=== PATIENT | male | born 1940 | race Caucasian/White ===

== ENCOUNTER 2016-05-27 06:33 | Outpatient (CLI) | payer MEDICARE | END 2016-05-27 06:34 | disposition home or self-care (01) | DX: N28.9 Disorder of kidney and ureter, unspecified (principal); I25.9 Chronic ischemic heart disease, unspecified; E78.5 Hyperlipidemia, unspecified; E11.649 Type 2 diabetes mellitus with hypoglycemia without coma; E03.9 Hypothyroidism, unspecified ==

== ENCOUNTER 2016-07-20 11:05 | Outpatient (CLI) | payer MEDICARE | END 2016-07-20 11:06 | disposition home or self-care (01) | DX: N05.9 Unspecified nephritic syndrome with unspecified morphologic changes (principal); D70.9 Neutropenia, unspecified; R80.9 Proteinuria, unspecified; E83.30 Disorder of phosphorus metabolism, unspecified; N25.81 Secondary hyperparathyroidism of renal origin ==

== ENCOUNTER 2016-08-23 08:00 | Outpatient (CLI) | payer MEDICARE | END 2016-08-23 08:01 | disposition home or self-care (01) | LOC: LAB.R 08:00 → LAB.F 08:48 | PROVIDERS: ATTEND Physician Assistant Medical | DX: Z12.11 Encounter for screening for malignant neoplasm of colon (principal) | CPT/HCPCS: 81599; 82274 ==

== ENCOUNTER 2016-08-23 09:50 | Outpatient (CLI) | payer MEDICARE ==
[2016-08-23 19:02] LABS: HEMOGLOBIN A1C 0.7 g/dL
== END 2016-08-23 09:51 | disposition home or self-care (01) ==
LOC: LAB.F 09:50
PROVIDERS: ATTEND Internal Medicine
DX: E11.9 Type 2 diabetes mellitus without complications (principal)
CPT/HCPCS: 36415; 83036

== ENCOUNTER 2016-09-06 12:06 | Outpatient (CLI) | payer MEDICARE ==
[2016-09-06 19:25] LABS: ALBUMIN/GLOBULIN RATIO 1.1 (1.0-2.2); BILIRUBIN,TOTAL 0.7 mg/dL (0.2-1.0); BUN - BLOOD UREA NITROGEN 24 mg/dL (6-20); CALCIUM 9.4 mg/dL (8.5-10.3); CARBON DIOXIDE - CO2 28 mmol/L (21-32); CHLORIDE 103 mmol/L (101-111); CREATININE 1.9 mg/dL (0.6-1.2); GFR - MDRD 34 (>89); GLUCOSE 139 mg/dL (70-100); POTASSIUM 4.7 mmol/L (3.5-5.0); SODIUM 138 mmol/L (135-145)
== END 2016-09-06 12:07 | disposition home or self-care (01) ==
LOC: LAB.F 12:06
PROVIDERS: ATTEND Internal Medicine
DX: N18.3 Chronic kidney disease, stage 3 (moderate) (principal); F31.9 Bipolar disorder, unspecified
CPT/HCPCS: 36415; 80053; 80164

== ENCOUNTER 2016-12-10 11:28 | Outpatient (CLI) | payer MEDICARE ==
[2016-12-10 18:23] LABS: BASOPHILS % (AUTO) 0.6 %; EOSINOPHILS # (AUTO) 0.3 10^3/uL (0.0-0.7); EOSINOPHILS % (AUTO) 3.8 %; HCT - HEMATOCRIT 41.7 % (42.0-52.0); HGB - HEMOGLOBIN 14.1 g/dL (14.0-18.0); LYMPHOCYTES # (AUTO) 1.4 10^3/uL (1.5-3.5); LYMPHOCYTES % (AUTO) 19.7 %; MEAN CORPUSCULAR HEMOGLOBIN 30.6 pg (27.0-31.0); MEAN CORPUSCULAR HGB CONC 33.8 g/dL (32.0-36.0); MEAN CORPUSCULAR VOLUME 90.5 fL (80.0-94.0); MEAN PLATELET VOLUME 7.2 fL (7.4-11.4); MONOCYTES # (AUTO) 0.6 10^3/uL (0.0-1.0); NEUTROPHILS # (AUTO) 4.7 10^3/uL (1.5-6.6); NEUTROPHILS % (AUTO) 67.9 %; NUCLEATED RED BLOOD CELLS AUTO 0.1 /100WBC; RED BLOOD COUNT 4.61 10^6/uL (4.70-6.10); RED CELL DISTRIBUTION WIDTH 13.9 % (12.0-15.0)
[2016-12-10 18:33] LABS: ALBUMIN/GLOBULIN RATIO 1.2 (1.0-2.2); BILIRUBIN,TOTAL 0.7 mg/dL (0.2-1.0); BUN - BLOOD UREA NITROGEN 25 mg/dL (6-20); CALCIUM 9.1 mg/dL (8.5-10.3); CARBON DIOXIDE - CO2 23 mmol/L (21-32); CHLORIDE 102 mmol/L (101-111); CHOLESTEROL 164 mg/dL; CREATININE 1.6 mg/dL (0.6-1.2); GFR - MDRD 42 (>89); GLUCOSE 117 mg/dL (70-100); HDL CHOLESTEROL 33 mg/dL; LDL/HDL RATIO 2.5 (<3.6); POTASSIUM 4.2 mmol/L (3.5-5.0); SODIUM 136 mmol/L (135-145); TOTAL PROTEIN 6.7 g/dL (6.7-8.2); TRIGLYCERIDES 244 mg/dL; VLDL CHOLESTEROL 49 mg/dL
[2016-12-10 18:39] LABS: HEMOGLOBIN A1C 0.62 g/dL
== END 2016-12-10 11:29 | disposition home or self-care (01) ==
LOC: LAB.F 11:28
PROVIDERS: ATTEND Internal Medicine
DX: I12.9 Hypertensive chronic kidney disease with stage 1 through stage 4 chronic kidney disease, or unspecified chronic kidney disease (principal); N18.3 Chronic kidney disease, stage 3 (moderate); E78.00 Pure hypercholesterolemia, unspecified; F31.9 Bipolar disorder, unspecified; E11.9 Type 2 diabetes mellitus without complications; E03.9 Hypothyroidism, unspecified
CPT/HCPCS: 36415; 80053; 80061; 80164; 83036; 84443; 85025

== ENCOUNTER 2017-03-07 08:00 | Outpatient (CLI) | payer MEDICARE ==
[2017-03-07 18:48] LABS: BILIRUBIN,URINE NEGATIVE (NEGATIVE); PH,URINE 6.5 PH (5.0-7.5)
[2017-03-07 18:59] LABS: UA CHARGE (STRIP ONLY) YES; UR CULTURE IF IND NOT INDICATED
== END 2017-03-07 08:01 | disposition home or self-care (01) ==
LOC: LAB.R 08:00
PROVIDERS: ATTEND Nurse Practitioner Family
DX: R30.0 Dysuria (principal)
CPT/HCPCS: 81001; 81003; 87086

== ENCOUNTER 2017-05-18 09:38 | Outpatient (CLI) | payer MEDICARE ==
[2017-05-18 17:41] LABS: BASOPHILS % (AUTO) 0.8 %; EOSINOPHILS # (AUTO) 0.2 10^3/uL (0.0-0.7); EOSINOPHILS % (AUTO) 4.2 %; LYMPHOCYTES # (AUTO) 1.7 10^3/uL (1.5-3.5); LYMPHOCYTES % (AUTO) 29.1 %; MEAN CORPUSCULAR HEMOGLOBIN 30.3 pg (27.0-31.0); MEAN CORPUSCULAR HGB CONC 32.8 g/dL (32.0-36.0); MEAN CORPUSCULAR VOLUME 92.2 fL (80.0-94.0); MEAN PLATELET VOLUME 7.3 fL (7.4-11.4); MONOCYTES # (AUTO) 0.5 10^3/uL (0.0-1.0); MONOCYTES % (AUTO) 9.3 %; NEUTROPHILS # (AUTO) 3.2 10^3/uL (1.5-6.6); NEUTROPHILS % (AUTO) 56.6 %; PLT - PLATELET COUNT 160 10^3/uL (130-450); RED BLOOD COUNT 4.62 10^6/uL (4.70-6.10); RED CELL DISTRIBUTION WIDTH 14.5 % (12.0-15.0); WHITE BLOOD COUNT 5.7 x10^3/uL (4.8-10.8)
[2017-05-18 18:07] LABS: HB2 TOTAL 15.6 g/dL; HEMOGLOBIN A1C 0.57 g/dL; HEMOGLOBIN A1C % 5.5 % (4.6-6.2)
[2017-05-18 18:09] LABS: ALBUMIN 3.5 g/dL (3.2-5.5); ALKALINE PHOSPHATASE 29 IU/L (42-121); ALT ALANINE AMINOTRANSFERASE 13 IU/L (10-60); AST ASPARTATE AMINOTRANSFERASE 23 IU/L (10-42); BILIRUBIN,TOTAL 0.8 mg/dL (0.2-1.0); BUN - BLOOD UREA NITROGEN 27 mg/dL (6-20); CALCIUM 9.1 mg/dL (8.5-10.3); CARBON DIOXIDE - CO2 24 mmol/L (21-32); CHLORIDE 104 mmol/L (101-111); CHOL/HDL RATIO 5.2 (<5.0); CHOLESTEROL 167 mg/dL; CREATININE 1.7 mg/dL (0.6-1.2); GFR - MDRD 39 (>89); GLUCOSE 90 mg/dL (70-100); HDL CHOLESTEROL 32 mg/dL; LDL CHOLESTEROL,CALCULATED 95 mg/dL; SODIUM 139 mmol/L (135-145); TOTAL PROTEIN 6.9 g/dL (6.7-8.2); VLDL CHOLESTEROL 40 mg/dL
== END 2017-05-18 09:39 | disposition home or self-care (01) ==
LOC: LAB.F 09:38
PROVIDERS: ATTEND Family Medicine
DX: I12.9 Hypertensive chronic kidney disease with stage 1 through stage 4 chronic kidney disease, or unspecified chronic kidney disease (principal); E11.22 Type 2 diabetes mellitus with diabetic chronic kidney disease; N18.3 Chronic kidney disease, stage 3 (moderate); E78.00 Pure hypercholesterolemia, unspecified
CPT/HCPCS: 36415; 80053; 80061; 83036; 83721; 84443; 85025

== ENCOUNTER 2017-06-05 01:02 | Outpatient (CLI) | payer MEDICARE | END 2017-06-05 01:03 | disposition EMS.NT | LOC: EMS 01:02 | PROVIDERS: ATTEND Surgery | DX: Z03.89 Encounter for observation for other suspected diseases and conditions ruled out (principal); W18.11XA Fall from or off toilet without subsequent striking against object, initial encounter; Y92.091 Bathroom in other non-institutional residence as the place of occurrence of the external cause ==

== ENCOUNTER 2017-08-11 08:00 | Outpatient (CLI) | payer MEDICARE ==
[2017-08-11 15:07] LABS: CALCIUM 9.1 mg/dL (8.5-10.3); CREATININE 1.8 mg/dL (0.6-1.2)
== END 2017-08-11 08:01 | disposition home or self-care (01) ==
LOC: LAB.R 08:00
DX: N05.9 Unspecified nephritic syndrome with unspecified morphologic changes (principal)
CPT/HCPCS: 80048

== ENCOUNTER 2017-09-10 16:50 | Outpatient (CLI) | payer MEDICARE, MEDICAID ==
[2017-09-10 23:09] LABS: BASOPHILS % (AUTO) 0.7 %; EOSINOPHILS # (AUTO) 0.2 10^3/uL (0.0-0.7); EOSINOPHILS % (AUTO) 3.1 %; HGB - HEMOGLOBIN 14.5 g/dL (14.0-18.0); LYMPHOCYTES # (AUTO) 1.1 10^3/uL (1.5-3.5); LYMPHOCYTES % (AUTO) 19.4 %; MEAN CORPUSCULAR HEMOGLOBIN 32.1 pg (27.0-31.0); MEAN CORPUSCULAR HGB CONC 33.8 g/dL (32.0-36.0); MEAN PLATELET VOLUME 7.8 fL (7.4-11.4); MONOCYTES # (AUTO) 0.5 10^3/uL (0.0-1.0); MONOCYTES % (AUTO) 8.4 %; NEUTROPHILS % (AUTO) 68.4 %; PLT - PLATELET COUNT 165 10^3/uL (130-450); RED BLOOD COUNT 4.53 10^6/uL (4.70-6.10); RED CELL DISTRIBUTION WIDTH 14.3 % (12.0-15.0); WHITE BLOOD COUNT 5.9 x10^3/uL (4.8-10.8)
[2017-09-10 23:21] LABS: ALBUMIN 3.7 g/dL (3.2-5.5); ALBUMIN/GLOBULIN RATIO 1.1 (1.0-2.2); BILIRUBIN,TOTAL 0.5 mg/dL (0.2-1.0); CALCIUM 8.9 mg/dL (8.5-10.3); CREATININE 1.9 mg/dL (0.6-1.2)
[2017-09-10 23:58] LABS: HB2 TOTAL 15.9 g/dL; HEMOGLOBIN A1C 0.5 g/dL
== END 2017-09-10 23:59 | disposition home or self-care (01) ==
LOC: LAB.R 16:50
DX: E11.65 Type 2 diabetes mellitus with hyperglycemia (principal); N18.4 Chronic kidney disease, stage 4 (severe)
CPT/HCPCS: 80053; 83036; 85025

== ENCOUNTER 2017-11-12 08:00 | Outpatient (CLI) | payer MEDICARE, MEDICAID | END 2017-11-12 08:01 | disposition home or self-care (01) | LOC: LAB.R 08:00 | PROVIDERS: ATTEND Family Medicine | DX: Z53.9 Procedure and treatment not carried out, unspecified reason (principal) ==

== ENCOUNTER 2017-11-12 08:00 | Outpatient (CLI) | payer MEDICARE, MEDICAID ==
[2017-11-12 22:52] LABS: CALCIUM 8.8 mg/dL (8.5-10.3); CREATININE 1.4 mg/dL (0.6-1.2)
== END 2017-11-12 08:01 | disposition home or self-care (01) ==
LOC: LAB.R 08:00
DX: G30.9 Alzheimer's disease, unspecified (principal); N18.3 Chronic kidney disease, stage 3 (moderate)
CPT/HCPCS: 80048

== ENCOUNTER 2017-12-26 12:08 | Emergency (ER) | payer MEDICARE, MEDICAID ==
[2017-12-26 12:16] VITALS: BP 139/58
--- NOTE | 2017-12-26 12:40 | ED Physician Documentation ---
PD HPI WOUND RECHECK - Stated complaint Stated Complaint: LEFT FINGER SWELLING - Chief complaint Chief Complaint: Wound - Histroy obtained from History obtained from: Patient - History of Present Illness Location: Left Uppper Extremity (He noted a swelling of the left ring finger today. He has not gotten his wedding ring off in many years.) Review of Systems Constitutional: reports: Reviewed and negative Respiratory: reports: Reviewed and negative PD PAST MEDICAL HISTORY - Past Medical History Past Medical History: Yes Cardiovascular: Coronary artery disease : Benign prostate hypertrophy - Present Medications Home Medications: Ambulatory Orders Medication Instructions Recorded Confirmed Allopurinol [Zyloprim] 100 mg PO DAILY 08/13/15 08/13/15 Aspirin [Aspir-Low] 81 mg PO DAILY 08/13/15 08/13/15 Calcium Carbonate/Vitamin D3 1 tab PO DAILY 08/13/15 08/13/15 [Calcium 600 + Vit D 400 Tablet] Cholecalciferol (Vitamin D3) 1 tab PO DAILY 08/13/15 08/13/15 [Vitamin D3] Cholecalciferol [Vitamin D3] 2,000 unit PO DAILY 08/13/15 08/13/15 Divalproex Sodium [Depakote] 250 mg PO BID 08/13/15 08/13/15 Fenofibrate 160 mg PO DAILY 08/13/15 08/13/15 Finasteride [Proscar] 5 mg PO DAILY 08/13/15 08/13/15 Furosemide [Lasix] 20 mg PO DAILY PRN 08/13/15 08/13/15 Insulin NPH Human Isophane 16 unit SQ DAILY 08/13/15 08/13/15 [Humulin N] Insulin NPH Human Isophane 40 unit SQ DAILY 08/13/15 08/13/15 [Humulin N] Levothyroxine Sodium [Levoxyl] 175 mcg PO DAILY 08/13/15 08/13/15 Lisinopril 5 mg PO DAILY 08/13/15 08/13/15 Memantine HCl 5 mg PO DAILY 08/13/15 08/13/15 Metoprolol Tartrate [Lopressor] 50 mg PO BID 08/13/15 08/13/15 Nitroglycerin [Nitrostat] 0.4 mg SL ONCE PRN 08/13/15 08/13/15 Nystatin Cream [Mycostatin Cream] 1 applic TOP DAILY 08/13/15 08/13/15 Omeprazole 20 mg PO DAILY 08/13/15 08/13/15 Potassium Chloride 10 meq PO DAILY 08/13/15 08/13/15 QUEtiapine [SEROquel] 25 mg PO QPM 08/13/15 08/13/15 Sertraline [Zoloft] 50 mg PO DAILY 08/13/15 08/13/15 Simvastatin 10 mg PO QPM 08/13/15 08/13/15 Tamsulosin HCl [Flomax] 0.4 mg PO DAILY 08/13/15 08/13/15 clonazePAM [Clonazepam] 1 mg PO DAILY 08/13/15 08/13/15 Ciprofloxacin HCl [Cipro] 500 mg PO BID #20 tablet 12/26/17 Hydrocodone/Acetaminophen 1 - 2 each PO Q6H PRN #7 tablet 12/26/17 [Hydrocodon-Acetaminophen 5-325] - Living Situation Living Arrangement: reports: care home PD ED PE NORMAL - Vitals Vital signs reviewed: Yes - General General: No acute distress, Well developed/nourished - Extremities Extremities: Other (He has a massive paronychia of the medial edge of the left fourth finger with swelling of the whole digit but no signs of flexor tenosynovitis. He has a wedding ring on there that is quite tight and causing some constriction.) - Psych Psych: Normal mood, Normal affect Results - Vitals Vitals: Vital Signs - 24 hr 12/26/17 12:13 Temperature 36.0 C L Heart Rate 69 Respiratory 16 Rate Blood Pressure 139/58 H O2 Saturation 99 Oxygen O2 Source Room air Procedures - General procedure General procedure: The ring was removed by the RN using umbilical tape. Then the digit was blocked using buffered lidocaine and the pus was expressed from the nail fold and dressed. A culture was done. PD MEDICAL DECISION MAKING - Sepsis Event Vital Signs: Vital Signs - 24 hr 12/26/17 12:13 Temperature 36.0 C L Heart Rate 69 Respiratory 16 Rate Blood Pressure 139/58 H O2 Saturation 99 Oxygen O2 Source Room air Departure - Departure Disposition: 01 Home, Self Care Clinical Impression: Paronychia of finger of left hand Condition: Good Record reviewed to determine appropriate education?: Yes Instructions: ED Fingernail Infec Prescriptions: Ciprofloxacin HCl [Cipro] 500 mg PO BID #20 tablet Hydrocodone/Acetaminophen [Hydrocodon-Acetaminophen 5-325] 1 - 2 each PO Q6H PRN #7 tablet PRN Reason: pain Comments: Notes: Wound culture was done, we will call in 2-3 days if it is not sensitive to ciprofloxacin. Wound check daily.
[2017-12-26] MEDS ORDERED: BUFFERED LIDOCAINE 10 ML SYRINGE SUBQ ONE (12:49)
[2017-12-26] MEDS ORDERED: CIPROFLOXACIN 250 MG TABLET PO STA (13:19)
== END 2017-12-26 13:40 | disposition home or self-care (01) ==
LOC: ED 12:08
DX: L03.012 Cellulitis of left finger (principal)
CPT/HCPCS: 64450; 87070; 87205; 99283; A9270

== ENCOUNTER 2018-02-14 08:00 | Outpatient (CLI) | payer MEDICARE, MEDICAID ==
[2018-02-14 17:38] LABS: BASOPHILS % (AUTO) 0.6 %; EOSINOPHILS # (AUTO) 0.1 10^3/uL (0.0-0.7); EOSINOPHILS % (AUTO) 2.7 %; HGB - HEMOGLOBIN 13.3 g/dL (14.0-18.0); LYMPHOCYTES # (AUTO) 1.1 10^3/uL (1.5-3.5); LYMPHOCYTES % (AUTO) 22.9 %; MEAN CORPUSCULAR HEMOGLOBIN 31.5 pg (27.0-31.0); MEAN CORPUSCULAR HGB CONC 33.8 g/dL (32.0-36.0); MEAN CORPUSCULAR VOLUME 93.3 fL (80.0-94.0); MEAN PLATELET VOLUME 7.4 fL (7.4-11.4); MONOCYTES # (AUTO) 0.5 10^3/uL (0.0-1.0); MONOCYTES % (AUTO) 9.6 %; NEUTROPHILS # (AUTO) 3.2 10^3/uL (1.5-6.6); NEUTROPHILS % (AUTO) 64.2 %; PLT - PLATELET COUNT 168 10^3/uL (130-450); RED BLOOD COUNT 4.21 10^6/uL (4.70-6.10); RED CELL DISTRIBUTION WIDTH 14.1 % (12.0-15.0)
[2018-02-14 17:46] LABS: ALBUMIN 3.1 g/dL (3.2-5.5); BILIRUBIN,TOTAL 0.6 mg/dL (0.2-1.0); CALCIUM 8.7 mg/dL (8.5-10.3); CREATININE 1.5 mg/dL (0.6-1.2); TOTAL PROTEIN 6.2 g/dL (6.7-8.2)
== END 2018-02-14 08:01 | disposition home or self-care (01) ==
LOC: LAB.R 08:00
PROVIDERS: ATTEND Family Medicine
DX: F31.9 Bipolar disorder, unspecified (principal); I50.9 Heart failure, unspecified
CPT/HCPCS: 80053; 85025

== ENCOUNTER 2018-04-03 08:00 | Outpatient (CLI) | payer MEDICARE, MEDICAID ==
[2018-04-03 17:08] LABS: ALBUMIN 3.3 g/dL (3.2-5.5); ALBUMIN/GLOBULIN RATIO 0.9 (1.0-2.2); ALKALINE PHOSPHATASE 40 IU/L (42-121); ALT ALANINE AMINOTRANSFERASE < 10 IU/L (10-60); AST ASPARTATE AMINOTRANSFERASE 21 IU/L (10-42); BILIRUBIN,TOTAL 0.6 mg/dL (0.2-1.0); BUN - BLOOD UREA NITROGEN 23 mg/dL (6-20); CALCIUM 9.5 mg/dL (8.5-10.3); CARBON DIOXIDE - CO2 27 mmol/L (21-32); CHLORIDE 102 mmol/L (101-111); CREATININE 1.4 mg/dL (0.6-1.2); GFR - MDRD 49 (>89); GLUCOSE 144 mg/dL (70-100); SODIUM 137 mmol/L (135-145); TOTAL PROTEIN 7.1 g/dL (6.7-8.2)
[2018-04-03 17:21] LABS: HB2 TOTAL 16.7 g/dL; HEMOGLOBIN A1C 0.63 g/dL; HEMOGLOBIN A1C % 5.6 % (4.6-6.2)
== END 2018-04-03 23:59 | disposition home or self-care (01) ==
LOC: LAB.R 08:00
DX: E11.9 Type 2 diabetes mellitus without complications (principal); R63.4 Abnormal weight loss
CPT/HCPCS: 80053; 83036

== ENCOUNTER 2018-04-11 08:00 | Outpatient (CLI) | payer MEDICARE, MEDICAID | END 2018-04-11 23:59 | disposition home or self-care (01) | LOC: LAB.R 08:00 | DX: R19.7 Diarrhea, unspecified (principal) | CPT/HCPCS: 87493 ==

== ENCOUNTER 2018-06-14 08:00 | Outpatient (CLI) | payer MEDICARE, MEDICAID ==
[2018-06-14 15:45] LABS: CALCIUM 8.8 mg/dL (8.5-10.3); CREATININE 1.5 mg/dL (0.6-1.2)
== END 2018-06-14 23:59 | disposition home or self-care (01) ==
LOC: LAB.R 08:00
PROVIDERS: ATTEND Family Medicine
DX: E03.9 Hypothyroidism, unspecified (principal); E11.9 Type 2 diabetes mellitus without complications
CPT/HCPCS: 80048; 84443

== ENCOUNTER 2018-07-28 08:00 | Outpatient (CLI) | payer MEDICARE, MEDICAID ==
[2018-07-28 21:16] LABS: VALPROIC ACID (DEPAKOTE) 21.7 ug/mL
[2018-07-28 21:29] LABS: HB2 TOTAL 14.5 g/dL; HEMOGLOBIN A1C 0.53 g/dL; HEMOGLOBIN A1C % 5.5 % (4.6-6.2)
== END 2018-07-28 23:59 | disposition home or self-care (01) ==
LOC: LAB.R 08:00
PROVIDERS: ATTEND Family Medicine
DX: G30.9 Alzheimer's disease, unspecified (principal); E11.9 Type 2 diabetes mellitus without complications
CPT/HCPCS: 80164; 83036

== ENCOUNTER 2018-08-16 08:00 | Outpatient (CLI) | payer MEDICARE, MEDICAID ==
[2018-08-16 02:21] LABS: BASOPHILS % (AUTO) 0.4 %; EOSINOPHILS # (AUTO) 0.2 10^3/uL (0.0-0.7); HGB - HEMOGLOBIN 13.2 g/dL (14.0-18.0); LYMPHOCYTES # (AUTO) 1.3 10^3/uL (1.5-3.5); LYMPHOCYTES % (AUTO) 21.1 %; MEAN CORPUSCULAR HEMOGLOBIN 31.4 pg (27.0-31.0); MEAN CORPUSCULAR HGB CONC 33.9 g/dL (32.0-36.0); MEAN CORPUSCULAR VOLUME 92.6 fL (80.0-94.0); MEAN PLATELET VOLUME 8.2 fL (7.4-11.4); MONOCYTES # (AUTO) 0.6 10^3/uL (0.0-1.0); MONOCYTES % (AUTO) 8.9 %; NEUTROPHILS # (AUTO) 4.2 10^3/uL (1.5-6.6); NEUTROPHILS % (AUTO) 66.6 %; PLT - PLATELET COUNT 159 10^3/uL (130-450); RED CELL DISTRIBUTION WIDTH 13.2 % (12.0-15.0); WHITE BLOOD COUNT 6.3 x10^3/uL (4.8-10.8)
[2018-08-16 02:32] LABS: ALBUMIN 3.1 g/dL (3.2-5.5); ALKALINE PHOSPHATASE 28 IU/L (42-121); ALT ALANINE AMINOTRANSFERASE < 10 IU/L (10-60); AST ASPARTATE AMINOTRANSFERASE 19 IU/L (10-42); BILIRUBIN,TOTAL 0.4 mg/dL (0.2-1.0); BUN - BLOOD UREA NITROGEN 24 mg/dL (6-20); CARBON DIOXIDE - CO2 28 mmol/L (21-32); CHLORIDE 102 mmol/L (101-111); CREATININE 1.3 mg/dL (0.6-1.2); GFR - MDRD 53 (>89); GLUCOSE 121 mg/dL (70-100); SODIUM 139 mmol/L (135-145); TOTAL PROTEIN 6.3 g/dL (6.7-8.2)
== END 2018-08-16 23:59 | disposition home or self-care (01) ==
LOC: LAB.R 08:00
DX: R79.89 Other specified abnormal findings of blood chemistry (principal); R68.89 Other general symptoms and signs; I11.0 Hypertensive heart disease with heart failure; I50.9 Heart failure, unspecified
CPT/HCPCS: 80053; 85025

== ENCOUNTER 2018-10-31 08:00 | Outpatient (CLI) | payer MEDICARE, MEDICAID ==
[2018-10-31 18:30] LABS: BASOPHILS # (AUTO) 0.1 10^3/uL (0.0-0.1); BASOPHILS % (AUTO) 0.8 %; EOSINOPHILS # (AUTO) 0.2 10^3/uL (0.0-0.7); EOSINOPHILS % (AUTO) 3.3 %; HGB - HEMOGLOBIN 13.6 g/dL (14.0-18.0); LYMPHOCYTES # (AUTO) 1.3 10^3/uL (1.5-3.5); LYMPHOCYTES % (AUTO) 19.9 %; MEAN CORPUSCULAR HEMOGLOBIN 32.9 pg (27.0-31.0); MEAN CORPUSCULAR HGB CONC 32.9 g/dL (32.0-36.0); MEAN PLATELET VOLUME 9.7 fL (7.4-11.4); MONOCYTES # (AUTO) 0.6 10^3/uL (0.0-1.0); MONOCYTES % (AUTO) 8.8 %; NEUTROPHILS # (AUTO) 4.2 10^3/uL (1.5-6.6); NEUTROPHILS % (AUTO) 66.6 %; PLT - PLATELET COUNT 162 10^3/uL (130-450); RED BLOOD COUNT 4.14 10^6/uL (4.70-6.10); WHITE BLOOD COUNT 6.3 x10^3/uL (4.8-10.8)
[2018-10-31 18:50] LABS: ALBUMIN 3.5 g/dL (3.2-5.5); ALKALINE PHOSPHATASE 42 IU/L (42-121); ALT ALANINE AMINOTRANSFERASE 10 IU/L (10-60); AST ASPARTATE AMINOTRANSFERASE 18 IU/L (10-42); BILIRUBIN,TOTAL 0.6 mg/dL (0.2-1.0); BUN - BLOOD UREA NITROGEN 17 mg/dL (6-20); CALCIUM 9.1 mg/dL (8.5-10.3); CARBON DIOXIDE - CO2 27 mmol/L (21-32); CHLORIDE 103 mmol/L (101-111); CREATININE 1.1 mg/dL (0.6-1.2); GFR - MDRD 64 (>89); GLUCOSE 148 mg/dL (70-100); PHOSPHORUS 3.4 mg/dL (2.5-4.6); SODIUM 140 mmol/L (135-145); TOTAL PROTEIN 6.9 g/dL (6.7-8.2); URIC ACID 4.1 mg/dL (2.6-7.2); VALPROIC ACID (DEPAKOTE) 22.3 ug/mL
[2018-10-31 19:56] LABS: HB2 TOTAL 14.1 g/dL; HEMOGLOBIN A1C 0.42 g/dL; HEMOGLOBIN A1C % 4.9 % (4.6-6.2)
== END 2018-10-31 23:59 | disposition home or self-care (01) ==
LOC: LAB.R 08:00
PROVIDERS: ATTEND Internal Medicine
DX: I11.0 Hypertensive heart disease with heart failure (principal); I50.9 Heart failure, unspecified; F02.81 Dementia in other diseases classified elsewhere, unspecified severity, with behavioral disturbance; Z13.9 Encounter for screening, unspecified; E11.9 Type 2 diabetes mellitus without complications; M10.9 Gout, unspecified; I25.10 Atherosclerotic heart disease of native coronary artery without angina pectoris
CPT/HCPCS: 80053; 80069; 80164; 83036; 84550; 85025

== ENCOUNTER 2020-11-16 11:38 | Outpatient (CLI) | payer MEDICARE, MEDICAID | END 2020-11-16 11:39 | disposition critical access hospital (66) | LOC: EMS 11:38 | DX: R55 Syncope and collapse (principal) | CPT/HCPCS: A0425; A0427 ==

== ENCOUNTER 2020-11-16 11:58 | Emergency (ER) | payer MEDICARE, MEDICAID ==
[2020-11-16] MEDS ORDERED: SODIUM CHLORIDE 0.9% 1,000 ML IV STA (12:12)
--- NOTE | 2020-11-16 12:15 | ED Physician Documentation ---
PD HPI SYNCOPE - Stated complaint Stated Complaint: SYNCOPAL EPISODE - Chief complaint Chief Complaint: Neuro - History obtained from History obtained from: Patient, EMS ([facility] states EMT data quality consultant noted patient's eyes opened and he voiced discomfort with first chest compression by them. Staff at [facility] were doing chest compressions for several minutes.), Caregiver - History of Present Illness Witnessed: Witnessed Timing - onset: Today (shortly ANNUAL GREENHOUSE MANAGER - patient was having general weakness this morning, with low BP at [facility] ([facility]). He was noted to have syncope, and staff not sure about pulse, so CPR started. AED placed but battery was uncharged so no reading from it. insurance agency owner first responded, and took over CPR. Eyes opened.) Duration: Minutes (seemed LOC for few minutes, per caregivers, before he awoke abruptly with eye opening and saying "ouch" about chest compressions.) Preceding symptoms: Light headed, Generalized weakness Associated symptoms: No: Seizure, Chest pain, Nausea / vomiting Contributing factors: Decreased PO intake. No: Recent med change, Noxious stimulae, Just stood up (but was sitting up) Injury occurred: No: Fell, Head injury, Neck injury Treatment ANNUAL GREENHOUSE MANAGER: CPR (chest compressions done after the syncope as caregivers could not tell if they felt a pulse.) Similar symptoms before: Has not had sx before Recently seen: Not recently seen Review of Systems Unable to obtain: Dementia Constitutional: denies: Fever, Chills Nose: denies: Rhinorrhea / runny nose, Congestion Cardiac: denies: Chest pain / pressure Respiratory: denies: Cough GI: denies: Abdominal Pain, Vomiting, Diarrhea Neurologic: denies: Altered mental status (history of dementia and has had less PO intake lately, as not wanting to eat meals per and caregivers.) Endocrine: reports: Weight loss PD PAST MEDICAL HISTORY - Past Medical History Cardiovascular: Hypertension, Coronary artery disease Neuro: Dementia Endocrine/Autoimmune: None : Benign prostate hypertrophy - Present Medications Home Medications: Ambulatory Orders Medication Instructions Recorded Confirmed Aspirin [Aspir-Low] 81 mg PO DAILY 08/13/15 11/16/20 Finasteride [Proscar] 5 mg PO DAILY 08/13/15 11/16/20 Levothyroxine Sodium [Levoxyl] 175 mcg PO DAILY 08/13/15 11/16/20 Metoprolol Tartrate [Lopressor] 25 mg PO BID 08/13/15 11/16/20 Nitroglycerin [Nitrostat] 0.4 mg SL ONCE PRN 08/13/15 08/13/15 Nystatin Cream [Mycostatin Cream] 1 applic TOP DAILY 08/13/15 11/16/20 QUEtiapine [SEROquel] 75 mg PO DAILY 08/13/15 11/16/20 Sertraline [Zoloft] 150 mg PO QPM 08/13/15 11/16/20 Tamsulosin HCl [Flomax] 0.4 mg PO DAILY 08/13/15 11/16/20 allopurinoL [Zyloprim] 200 mg PO DAILY 08/13/15 11/16/20 clonazePAM [Clonazepam] 0.5 mg PO Q4HR PRN 08/13/15 11/16/20 lisinopriL [Lisinopril] 5 mg PO DAILY 08/13/15 11/16/20 Acetaminophen [Tylenol] 650 mg PO Q6H PRN 11/16/20 11/16/20 Acetaminophen [Tylenol] 650 mg MN Q6HR PRN 11/16/20 11/16/20 Doxepin [SINEquan] 25 mg PO ONCE 11/16/20 11/16/20 Insulin Glargine [Lantus Solostar] 14 units SQ DAILY PM 11/16/20 11/16/20 Quetiapine Fumarate [Seroquel] 50 mg PO QPM 11/16/20 11/16/20 Valproate Oral Soln [Valproic Acid 10 ml ORAL BID 11/16/20 11/16/20 Oral Soln] clonazePAM [KlonoPIN] 0.5 mg PO DAILY 11/16/20 11/16/20 haloperidoL [Haldol] 1 mg PO Q8H PRN 11/16/20 11/16/20 haloperidoL [Haldol] 1 mg PO TID 11/16/20 11/16/20 - Allergies Allergies/Adverse Reactions: Allergies Allergy/AdvReac Type Severity Reaction Status Date / Time fexofenadine [From Xi] Allergy Unknown Verified 11/16/20 12:09 morphine Allergy Unknown Verified 11/16/20 12:09 Penicillins Allergy Unknown Verified 11/16/20 12:09 Sulfa (Sulfonamide Allergy Unknown Verified 11/16/20 12:09 Antibiotics) - Living Situation Living Arrangement: reports: group home - Social History Does the pt smoke?: No Smoking Status: Never smoker - POLST POLST Status: DNR PD ED PE NORMAL - Vitals Vital signs reviewed: Yes - General General: No acute distress, Well developed/nourished - HEENT HEENT: Pharynx benign. No: Moist mucous membranes - Neck Neck: Supple, no meningeal sign, No adenopathy - Cardiac Cardiac: RRR, No murmur - Respiratory Respiratory: No respiratory distress, Clear bilaterally, Other (some chest wall tenderness in sternal area without crepitance nor deformity.) - Abdomen Abdomen: Normal bowel sounds, Soft, Non tender - Back Back: No CVA TTP - Derm Derm: Normal color, Warm and dry - Extremities Extremities: No tenderness to palpate, Normal ROM s pain, No edema, No calf tenderness / cord - Neuro Neuro: Alert and oriented X 3, No motor deficit, Normal speech Results - Vitals Vitals: Vital Signs - 24 hr 11/16/20 11/16/20 11/16/20 12:03 12:33 13:18 Temperature 34.9 C L 35.8 C L Heart Rate 59 L 61 60 Respiratory 16 14 15 Rate Blood Pressure 99/56 L 115/62 120/68 O2 Saturation 95 100 99 11/16/20 14:49 Temperature Heart Rate 58 L Respiratory 13 Rate Blood Pressure 115/69 O2 Saturation 98 Oxygen O2 Source Room air - EKG (time done) 11:59 Rate: Rate (enter#) (59) Rhythm: NSR [place]: Normal Intervals: Normal MN QRS: Normal Ischemia: Normal ST segments. No: ST elevation c/w ischemia, ST depression Compare to prior EKG: Unchanged from prior EKG - Labs Labs: Microbiology 11/16/20 12:08 Occult Blood - Final Stool - Loose Consistency Laboratory Tests 11/16/20 11/16/20 11/16/20 12:29 12:29 12:29 WBC 7.9 RBC 3.85 L Hgb 12.6 L Hct 37.0 L MCV 96.1 H MCH 32.7 H MCHC 34.1 RDW 13.4 Plt Count 130 MPV 9.4 Neut # (Auto) 6.3 Lymph # (Auto) 0.8 L [place] # (Auto) 0.6 Eos # (Auto) 0.2 Baso # (Auto) 0.0 Absolute Nucleated RBC 0.00 Nucleated RBC % 0.0 Sodium 140 Potassium 4.0 Chloride 103 Carbon Dioxide 29 Anion Gap 8.0 BUN 24 H Creatinine 1.2 Estimated GFR (MDRD) 58 L Glucose 97 Lactic Acid Calcium 8.8 Magnesium 2.1 Total Bilirubin 0.8 AST 13 ALT 10 Alkaline Phosphatase 46 Troponin I High Sens 8.1 Total Protein 6.3 L Albumin 3.3 Globulin 3.0 Albumin/Globulin Ratio 1.1 Lipase 32 Urine Color Urine Clarity Urine pH Ur Specific Chandler Urine Protein Urine Glucose (UA) Urine Ketones Urine Occult Blood Urine Nitrite Urine Bilirubin Urine Urobilinogen Ur Leukocyte Esterase Ur Microscopic Review Urine Culture Comments 11/16/20 11/16/20 12:29 13:26 WBC RBC Hgb Hct MCV MCH MCHC RDW Plt Count MPV Neut # (Auto) Lymph # (Auto) [place] # (Auto) Eos # (Auto) Baso # (Auto) Absolute Nucleated RBC Nucleated RBC % Sodium Potassium Chloride Carbon Dioxide Anion Gap BUN Creatinine Estimated GFR (MDRD) Glucose Lactic Acid 1.2 Calcium Magnesium Total Bilirubin AST ALT Alkaline Phosphatase Troponin I High Sens Total Protein Albumin Globulin Albumin/Globulin Ratio Lipase Urine Color DARK YELLOW Urine Clarity CLEAR Urine pH 6.0 Ur Specific Chandler 1.025 Urine Protein NEGATIVE Urine Glucose (UA) NEGATIVE Urine Ketones NEGATIVE Urine Occult Blood NEGATIVE Urine Nitrite NEGATIVE Urine Bilirubin NEGATIVE Urine Urobilinogen 0.2 (NORMAL) Ur Leukocyte Esterase NEGATIVE Ur Microscopic Review NOT INDICATED Urine Culture Comments NOT INDICATED - Rads (name of study) chest xry Radiology: Prelim report reviewed (no acute process), See rad report chest/abd/pelvis CT Radiology: Prelim report reviewed (no organ injury, acute process, nor fractures.), See rad report PD MEDICAL DECISION MAKING - ED course Complexity details: reviewed results, considered differential (seems like syncope, and he awoke to baseline after few minutes. I doubt he had dysrhythmia as he returned to awake without cardioversion/etc, just with stimulus of chest compression. ), d/w patient, d/w family (I talked with his , who is in [place], having attended family wedding. She was updated on labs and findings. She is okay with him returning to [facility]. ) Departure - Departure Disposition: 01 Home, Self Care Clinical Impression: Transient hypotension Episode of syncope Qualifiers: Syncope type: unspecified Qualified Code(s): R55 - Syncope and collapse Condition: Stable Record reviewed to determine appropriate education?: Yes Instructions: ED Fainting Unkn Cause Follow-Up: Morenita Martinez MD [Primary Care Provider] - Comments: There is no signs of significant process such as sepsis or infection or heart injury or irregular heartbeat. Basic blood testing EKG and CT scans are normal. No signs of chest wall injury from the compressions. At this point I would presume some under hydration leading to a low blood pressure and fainting. Try to stay well-hydrated. Discontinue the lisinopril. Otherwise medications to remain the same. Follow- up with your primary care in the next couple of days. Discharge Date/Time: 11/16/20 15:32
[2020-11-16] MEDS ORDERED: IOPAMIDOL-300 50 ML VIAL ONE (12:21)
[2020-11-16 12:37] LABS: BASOPHILS % (AUTO) 0.5 %; EOSINOPHILS # (AUTO) 0.2 10^3/uL (0.0-0.7); EOSINOPHILS % (AUTO) 2.7 %; HGB - HEMOGLOBIN 12.6 g/dL (14.0-18.0); LYMPHOCYTES # (AUTO) 0.8 10^3/uL (1.5-3.5); LYMPHOCYTES % (AUTO) 10.1 %; MEAN CORPUSCULAR HEMOGLOBIN 32.7 pg (27.0-31.0); MEAN CORPUSCULAR HGB CONC 34.1 g/dL (32.0-36.0); MEAN CORPUSCULAR VOLUME 96.1 fL (80.0-94.0); MEAN PLATELET VOLUME 9.4 fL (7.4-11.4); MONOCYTES # (AUTO) 0.6 10^3/uL (0.0-1.0); MONOCYTES % (AUTO) 7.1 %; NEUTROPHILS # (AUTO) 6.3 10^3/uL (1.5-6.6); NEUTROPHILS % (AUTO) 79.2 %; PLT - PLATELET COUNT 130 10^3/uL (130-450); RED BLOOD COUNT 3.85 10^6/uL (4.70-6.10); RED CELL DISTRIBUTION WIDTH 13.4 % (12.0-15.0); WHITE BLOOD COUNT 7.9 x10^3/uL (4.8-10.8)
[2020-11-16 12:49] LABS: ALBUMIN 3.3 g/dL (3.2-5.5); ALBUMIN/GLOBULIN RATIO 1.1 (1.0-2.2); BILIRUBIN,TOTAL 0.8 mg/dL (0.2-1.0); CALCIUM 8.8 mg/dL (8.5-10.3); CREATININE 1.2 mg/dL (0.6-1.2); MAGNESIUM 2.1 mg/dL (1.7-2.8); TOTAL PROTEIN 6.3 g/dL (6.7-8.2)
--- NOTE | 2020-11-16 12:51 | XRAY Report ---
PROCEDURE: Chest 1 View X-Ray INDICATIONS: Chest Pain TECHNIQUE: One view of the chest was acquired. COMPARISON: None. FINDINGS: Surgical changes and devices: None. Lungs and pleura: No pleural effusions or pneumothorax. Lungs are hypoinflated but clear. Mediastinum: Mediastinal contours appear normal. Heart size is normal. Bones and chest wall: No suspicious bony lesions. Degenerative changes of the shoulders. Overlying s oft tissues appear unremarkable. Surgical clips in the neck. IMPRESSION: No acute cardiopulmonary abnormality. Reviewed by: Silverio Lane on 11/16/2020 11:50 AM KEILA Approved by: Silverio Lnae on 11/16/2020 11:50 AM KEILA Station ID: [id number]
[2020-11-16] MEDS ORDERED: IOPAMIDOL-300 50 ML VIAL IVP ONE (13:17)
[2020-11-16 13:40] LABS: BILIRUBIN,URINE NEGATIVE (NEGATIVE); GLUCOSE, URINE (UA) NEGATIVE (NEGATIVE); KETONES,URINE (UA) NEGATIVE (NEGATIVE); LEUKOCYTE ESTERASE, URINE NEGATIVE (NEGATIVE); NITRITE,URINE NEGATIVE (NEGATIVE); OCCULT BLOOD,URINE NEGATIVE (NEGATIVE); PROTEIN,URINE NEGATIVE (NEGATIVE); UROBILINOGEN,URINE 0.2 (NORMAL) E.U./dL (NORMAL)
[2020-11-16 13:44] LABS: CLARITY,URINE CLEAR (CLEAR)
--- NOTE | 2020-11-16 13:47 | CT Report ---
PROCEDURE: CHEST W INDICATIONS: low BP, syncope; brief chest compressions CONTRAST: IV CONTRAST: Isovue 300 ml: 100 PO CONTRAST: *NO PO CONTRAST TECHNIQUE: After the administration of intravenous contrast, images were acquired from the pulmonary apices to t he posterior costophrenic angles. Multiplanar MIP reformats were acquired. For radiation dose reduc tion, the following was used: automated exposure control, adjustment of mA and/or kV according to pa tient size. COMPARISON: None. FINDINGS: Image quality: Excellent. Lungs and pleura: No acute air space opacities. No pleural effusions or pneumothorax. Central and peripheral airways are patent and normal in caliber. Mediastinum: Heart size is mildly enlarged. Subendocardial fat deposition along the apex and intrave ntricular septum of the heart may be from remote injury. Multivessel coronary artery calcifications. No pericardial effusion. No mediastinal or hilar adenopathy by size criteria. Moderate enlargement o f the main pulmonary artery up to 3.5 cm diameter. Esophagus is normal in caliber. No hiatal hernia. Bones and chest wall: No suspicious bony lesions. No vertebral body compression fractures. No axil yisel or supraclavicular adenopathy by size criteria. Thyroid appears surgically absent. Abdomen: Visualized upper abdominal solid organs appear normal. Layering stones in the gallbladder. Upper abdominal bowel loops are normal in caliber. IMPRESSION: 1. Mild cardiomegaly and pulmonary vascular congestion. 2.Subendocardial fat deposition along the apex and intraventricular septum of the heart may be from r emote injury. 3. Cholelithiasis. 4. Mild pulmonary artery enlargement. Reviewed by: Silverio Lane on 11/16/2020 12:46 PM KEILA Approved by: Silverio Lane on 11/16/2020 12:46 PM AKDT Station ID: [id number]
--- NOTE | 2020-11-16 14:03 | CT Report ---
PROCEDURE: Abdomen/Pelvis W INDICATIONS: low BP, syncope CONTRAST: IV CONTRAST: Isovue 300 ml: 100 PO CONTRAST: *NO PO CONTRAST TECHNIQUE: After the administration of 100 mL Isovue-300 intravenous contrast, 5 mm thick sections acquired from the diaphragms to the symphysis. 5 mm thick coronal and sagittal reformats were acquired. For radi ation dose reduction, the following was used: automated exposure control, adjustment of mA and/or kV according to patient size. COMPARISON: None. FINDINGS: Image quality: Excellent. ABDOMEN: Lung bases: Bibasilar atelectasis. Heart size is mildly enlarged. Solid organs: Liver is normal in size and enhancement. Mild splenomegaly. Gallbladder contains layer ing stones. Biliary system is non dilated. Pancreas enhances normally. No adrenal nodules. Kidney s demonstrate normal size and enhancement, without hydronephrosis. Multiple left renal cysts are pres ent. Peritoneum and bowel: Bowel loops demonstrate normal wall thickness and caliber. No free fluid or a ir. Nodes and vessels: No retroperitoneal or mesenteric adenopathy by size criteria. Aorta and inferior vena cava are normal in size. Vascular calcification of the aorta and its branches. Miscellaneous: No ventral hernias. PELVIS: Genitourinary: Bladder wall is mildly thickened. Miscellaneous: Small fat-containing left inguinal hernia. Bones: No suspicious bony lesions. No vertebral body compression fractures. Multilevel thoracolumb ar spondylosis. IMPRESSION: 1. Mild thickening of the bladder wall may reflect underlying infection or inflammation. Otherwise no acute intra-abdominal abnormality. 2. Cholelithiasis. 3. Mild splenomegaly. Reviewed by: Silverio Lane on 11/16/2020 1:01 PM KEILA Approved by: Silverio Lane on 11/16/2020 1:01 PM KEILA Station ID: [id number]
[2020-11-16 14:50] VITALS: BP 115/69
== END 2020-11-16 15:32 | disposition home or self-care (01) ==
LOC: EDUNIT# → ED 11:58
DX: I95.89 Other hypotension (principal); I25.10 Atherosclerotic heart disease of native coronary artery without angina pectoris; I10 Essential (primary) hypertension; F03.90 Unspecified dementia, unspecified severity, without behavioral disturbance, psychotic disturbance, mood disturbance, and anxiety
CPT/HCPCS: 36415; 51701; 71045; 71260; 74177; 80053; 81003; 82272; 83605; 83690; 83735; 84484; 85025; 93005; 96360; 96361; 99284; Q9967; 81001; 87086

== ENCOUNTER 2020-11-16 15:32 | Outpatient (CLI) | payer MEDICARE, MEDICAID | END 2020-11-16 15:33 | disposition home or self-care (01) | LOC: EMS 15:32 | PROVIDERS: ATTEND Emergency Medicine | DX: R55 Syncope and collapse (principal); F03.90 Unspecified dementia, unspecified severity, without behavioral disturbance, psychotic disturbance, mood disturbance, and anxiety; R41.0 Disorientation, unspecified | CPT/HCPCS: A0425; A0428 ==

== ENCOUNTER 2021-01-03 22:27 | Outpatient (CLI) | payer MEDICARE, MEDICAID | END 2021-01-03 22:28 | disposition E | LOC: EMS 22:27 ==